=== PATIENT | male | born 1990 | race African-American/Black ===

== ENCOUNTER 2024-10-16 11:18 | Emergency (ER) | payer MEDICAID, OTHER ==
[~2024-10-16] VITALS: Ht 177.8 cm; Wt 91.3 kg
[2024-10-16] MEDS: amLODIPine BESYLATE 5 MG TAB PO ONE (11:46)
[2024-10-16] MEDS: LORazepam 0.5 MG TAB PO ONE (11:47)
[2024-10-16 11:49] VITALS: BP 216/157; PULSE 16; RESP 16; O2SAT 83
--- NOTE | 2024-10-16 12:09 | ED.PDOC ---
HPI Comments 33 y/o M, with PMHX of HTN presents to the ED for CC of hypertension. Patient states, that he has been experiencing high blood pressure reading x 2days. Patient relays, that he is noncompliant with his blood pressure medications Amlodipine and Metoprol which he ran out of [id number] ago. Patient's blood pressure at home read at 220/146. Patient denies headache, chest pain, palpitations, or blurred vision. No other associated symptom's, modifiers, recent injuries or sick contacts at this time. Chief Complaint: High Blood Pressure Time Seen by MD: 11:35 Reviewed Notes: Nurses Notes, Medications, Allergies Allergies: Coded Allergies: NO KNOWN ALLERGIES (Unverified , 10/16/24) Information Source: Patient Mode of Arrival: Ambulatory Severity: Moderate Timing: Days Duration: Since onset Prehospital treatment: None Cardiac Risk Factors: None PE Risk Factors: None History of: None Modifying Factors: Nothing Associated Signs and Symptoms: None Past Medical History PAST MEDICAL HISTORY: HTN Surgical History: Denies all surgeries Family History Family History: Unknown Social History Smoker: Non-Smoker Alcohol: Denies ETOH Use Drugs: Denies Drug Use Lives In: Home Constitutional: denies: chills, diaphoresis, fatigue, fever, malaise, sweats, weakness, others EENTM: denies: blurred vision, double vision, ear bleeding, ear discharge, ear drainage, ear pain, ear ringing, eye pain, eye redness, hearing loss, mouth pain, mouth swelling, nasal discharge, nose bleeding, nose congestion, nose pain, photophobia, tearing, throat pain, throat swelling, voice changes, others Respiratory: denies: cough, hemoptysis, orthopnea, SOB at rest, shortness of breath, SOB with excertion, stridor, wheezing, others Cardiovascular: denies: chest pain, dizzy spells, diaphoresis, Dyspnea on exertion, edema, irregular heart beat, left arm pain, lightheadedness, palpitations, PND, syncope, others Gastrointestinal: denies: abdomen distended, abdominal pain, blood streaked bowels, constipated, diarrhea, dysphagia, difficulty swallowing, hematemesis, melena, nausea, poor appetite, poor fluid intake, rectal bleeding, rectal pain, vomiting, others Genitourinary: denies: burning, dysuria, flank pain, frequency, hematuria, incontinence, penile discharge, penile sore, pain, testicle pain, testicle swelling, urgency, others Neurological: denies: dizziness, fainting, headache, left sided numbness, left sided weakness, numbness, paresthesia, pre-existing deficit, right sided numbness, right sided weakness, seizure, speech problems, tingling, tremors, weakness, others Musculoskeletal: denies: back pain, gout, joint pain, joint swelling, muscle pain, muscle stiffness, neck pain, others Integumetry: denies: bruises, change in color, change in hair/nails, dryness, laceration, lesions, lumps, rash, wounds, others Allergic/Immunocompromised: denies: Difficulty Healing, Frequent Infections, Hives, Itching, others Hematologic/Lymphatic: denies: anemia, blood clots, easy bleeding, easy bruising, swollen glands, others Endocrine: denies: excessive hunger, excessive sweating, excessive thirst, excessive urination, flushing, intolerance to cold, intolerance to heat, unexp lained weight gain, unexplained weight loss, others Psychiatric: denies: anxiety, bipolar disorder, depression, hopeless, panic disorder, schizophrenia, sleepless, suicidal, others All Other Systems: Reviewed and Negative Physical Exam General Appearance: Moderate Distress HEENT: Normal ENT Inspection, Pharynx Normal, TMs Normal Neck: Full Range of Motion, Non-Tender, Normal, Normal Inspection Respiratory: Chest Non-Tender, Lungs Clear, No Accessory Muscle Use, No Respiratory Distress, Normal Breath Sounds Cardiovascular: No Edema, No JVD, No Murmur, No Gallop, Normal Peripheral Pulses, Regular Rate/Rhythm Breast Exam: Deferred Gastrointestinal: No Organomegaly, Non Tender, No Pulsatile Mass, Normal Bowel Sounds, Soft Genitalia: Deferred Pelvic: Deferred Rectal: Deferred Extremities: No calf tenderness, Normal capillary refill, Normal inspection, Normal range of motion, Non-tender, No pedal edema Musculoskeletal : Apperance: Normal Neurologic: Alert, appeals analyst II-XII nml as Tested, No Motor Deficits, Normal Affect, Normal Mood, No Sensory Deficits Cerebellar Function: Normal Reflexes: Normal Skin: Dry, Normal Color, Warm Peripheral Pulses: 3+ Radial (R), 3+ Radial (L) Lymphatic: No Adenopathy Was a procedure done? Was a procedure done?: No CP Differential Dx Differential Diagnosis: A-fib, A-Flutter, Angina, Anxiety / Panic Attack, Atrial Dysrhythmia, Electrolyte Disorder, Other (hypertensive urgency, medical noncompliance ) X-Ray, Labs, Meds, VS Vital Signs Date Time Temp Pulse Resp B/P (MAP) Pulse Ox O2 Delivery O2 Flow Rate FiO2 10/16/24 11:49 98.2 16 16 216/157 (176) 83 10/16/24 11:46 216/157 Current Medications Medications (Trade) Dose Ordered Sig/Jasbir Route Start Time Stop Time Status Last Admin Lorazepam (Ativan Tablet) 1 mg ONCE ONCE PO 10/16/24 11:45 10/16/24 11:46 DC 10/16/24 11:47 Amlodipine Besylate (Norvasc Tablet) 10 mg ONCE ONCE PO 10/16/24 11:45 10/16/24 11:46 DC 10/16/24 11:46 Patient alert. Blood pressure elevated. Has not been taking his medication for several months. Answering all questions. Ambulating. Was given Norvasc. Was given Ativan. Denies any symptoms. Saturation pristine on room air. Respiratory rate within normal limits. Denies any symptoms. No leg swelling. No chest pain. No shortness a breath. No headache. No dizziness. Was given prescription of Norvasc. Explained to the patient. Was told to follow up with his primary care physician. Was told to come back if there is any problem. Time of 1ST Reevaluation: 12:05 Reevaluation 1ST: Improved Patient Education/Counseling: Diagnosis, Treatment Family Education/Counseling: No Family Present Departure 1 Departure Time of Disposition: 12:45 Impression: Primary Impression: Hypertensive emergency Disposition: ADMITTED INPATIENT Admit to: Med Surg Condition: Guarded Critical Care Note Critical Care Time?: Yes (90 min-critical care time only) Critical care comment: Blood pressure elevated Stability Stability form required: No Heart Score Heart Score: Heart Score Response (Comments) Value History N/A 0 EKG N/A 0 Age N/A 0 Risk Factors N/A 0 Troponin N/A 0 Total 0 I personally scribed for NICOLE FISH MD ([email or web address]) on 10/16/24 at 12:09. Electronically submitted by Marlyn Louie ([email or web address]). NICOLE FISH MD Oct 16, 2024 12:09
[2024-10-16] MEDS ORDERED: NITROGLYCERIN 50MG/250ML 250 ML IV ONE (13:00)
[2024-10-16 13:32] LABS: Basophils # (auto) 0.1 10 ^3/uL (0-0.2); Basophils % (auto) 0.7 % (0.0-2.0); Eosinophils # (auto) 0.1 10 ^3/uL (0-0.8); Eosinophils % (auto) 1.8 % (0.0-7.0); Hematocrit 42.6 % (41.0-53.0); Hemoglobin 14.4 g/dL (13.5-17.5); Lymphocytes % (auto) 24.4 % (10.0-50.0); Mean Corpuscular Hemoglobin 27.1 pg (28.0-32.0); Mean Corpuscular Hgb Conc. 33.9 g/dL (32.0-36.0); Mean Corpuscular Volume 80.1 fL (80.0-100.0); Monocytes # (auto) 0.3 10 ^3/uL (0-1.3); Monocytes % (auto) 4.3 % (0.0-12.0); Neutrophils # (auto) 5.5 10 ^3/uL (1.6-8.6); Neutrophils % (auto) 68.8 % (37.0-80.0); Nucleated Red Blood Cells % 0.1 %; Platelet Count (auto) 288 10^3/uL (140-450); Red Blood Cells 5.31 10^6/uL (4.5-5.90); Red Cell Distribution Width 15.3 % (11.8-14.3)
[2024-10-16 13:46] LABS: Chloride 105 mmol/L (98-107); Sodium 138 mmol/L (136-145)
[2024-10-16 13:47] LABS: Anion Gap 8 (5-15); Carbon Dioxide 25 mmol/L (20-31)
[2024-10-16 13:52] LABS: Glucose 92 mg/dL (74-106)
[2024-10-16 14:04] LABS: BUN/Creatinine Ratio 11.1 (10.0-20.0)
[2024-10-16 14:07] LABS: Blood Urea Nitrogen 13 mg/dL (9-23); Potassium 4.7 mmol/L (3.5-5.1)
== END 2024-10-16 16:05 | disposition left against medical advice (07) ==
LOC: ER 11:18
DX: I16.1 Hypertensive emergency (principal)
CPT/HCPCS: 36415; 80048; 84484; 85025